=== PATIENT | female | born 1955 | race Caucasian/White ===

== ENCOUNTER 2019-03-22 06:26 | Day surgery (SDC) | payer OTHER ==
[2019-03-22] MEDS ORDERED: BUPIVACAINE 0.25% (MPF) 30 ML INJ (07:08)
[2019-03-22] MEDS ORDERED: HYDROmorphONE 1 MG/5 ML IV SYRINGE IV ×3 (07:30)
[2019-03-22] MEDS ORDERED: LABETALOL HCL 20MG INJ IV (07:30)
[2019-03-22] MEDS ORDERED: DIPHENHYDRAMINE 50 MG INJ IV (07:30)
[2019-03-22] MEDS ORDERED: hydrALAzine 20 MG INJ IV (07:30)
[2019-03-22] MEDS ORDERED: OXYCODONE/ACETAMINOPHEN (5/325) TAB PO ×3 (07:30→08:30)
[2019-03-22] MEDS ORDERED: FENTAnyl 50 MCG/ML VIAL IV ×3 (07:30)
[2019-03-22] MEDS ORDERED: ONDANSETRON 4 MG INJ IV ×2 (07:30→08:30)
[2019-03-22] MEDS ORDERED: MEPERIDINE 25 MG INJ IV (07:30)
[2019-03-22] MEDS ORDERED: CEFAZOLIN 1 GM INJ (07:58)
[2019-03-22] MEDS ORDERED: NEOMYC/POLYMYX/BACIT 30 GM OINT (08:13)
[2019-03-22] MEDS: LIDOCAINE 1%/EPI (1:100,000) (MDV) 20 ML (08:28)
[2019-03-22] MEDS: BUPIVACAINE 0.25%/EPI (SDV) 30 ML INJ (08:28)
[2019-03-22] MEDS: NEOMYC/POLYMYX/BACIT 3.5GM OPH OINT (08:29)
[2019-03-22] MEDS ORDERED: morphine 2 MG INJ IV (08:30)
[2019-03-22] MEDS: OXYCODONE/ACETAMINOPHEN (5/325) TAB PO (08:46)
== END 2019-03-22 09:15 | disposition home or self-care (01) ==
LOC: SDS 06:26
DX: R22.0 Localized swelling, mass and lump, head (principal); L82.1 Other seborrheic keratosis
CPT/HCPCS: 11423; 88307